=== PATIENT | male | born 1980 | race Caucasian/White ===

== ENCOUNTER 2016-11-02 15:29 | Emergency (ER) | END 2016-11-02 17:28 | disposition left against medical advice (07) | LOC: UCCORT 15:29 | DX: R21 Rash and other nonspecific skin eruption (principal); Z53.21 Procedure and treatment not carried out due to patient leaving prior to being seen by health care provider ==

== ENCOUNTER 2018-12-10 14:17 | Emergency (ER) | payer OTHER ==
[2018-12-10] MEDS ORDERED: Ketorolac INJ* 60 MG/2 ML VIAL IM ONE (16:09)
--- NOTE | 2018-12-10 16:31 | ED ---
Throat Pain/Nasal Congestion - HPI Summary HPI Summary: Patient is a 38-year-old male who presents to the ED with left bottom tooth pain over #21. He states he chipped his tooth a long time ago and the area keeps chipping with hard food. Last episode was last evening on a carrot. He is endorsing severe pain to the area which radiates up into the upper jaw and into the ear. He is also endorsing some swelling. Denies fevers, sweats, chills. He denies any erythema or warmth to the cheek. He states he is otherwise feeling at his baseline. Pain is currently rated an 8/10, constant and aching. - History of Current Complaint Chief Complaint: EDDentalPain Time Seen by Provider: 12/10/18 15:02 Hx Obtained From: Patient Onset/Duration: Sudden Onset Severity: Moderate Associated Signs And Symptoms: Positive: Negative - Epiglottits Risk Factors Epiglottis Risk Factors: Negative PMH/Surg Hx/FS Hx/Imm Hx Previously Healthy: Yes - Immunization History Hx Pertussis Vaccination: No Immunizations Up to Date: Yes Infectious Disease History: No Infectious Disease History: Denies: Traveled Outside the [place] in Last 30 Days - Social History Occupation: Employed Full-time Lives: With Family Alcohol Use: None Hx Substance Use: No Substance Use Type: Reports: None Hx Tobacco Use: Yes Smoking Status (MU): Former Smoker Review of Systems Constitutional: Negative Negative: Fever, Chills, Fatigue, Skin Diaphoresis Positive: Dental Pain. Negative: Sore Throat Negative: Palpitations, Chest Pain Negative: Abdominal Pain, Vomiting, Diarrhea Genitourinary: Negative Positive: no symptoms reported, see HPI Negative: Arthralgia, Myalgia Skin: Negative All Other Systems Reviewed And Are Negative: Yes Physical Exam Triage Information Reviewed: Yes Vital Signs On Initial Exam: Initial Vitals Temp Pulse Resp BP Pulse Ox 97.7 F 91 16 133/105 99 12/10/18 14:25 12/10/18 14:25 12/10/18 14:25 12/10/18 14:25 12/10/18 14:25 Vital Signs Reviewed: Yes Appearance: Positive: Well-Appearing, Well-Nourished Skin: Positive: Warm, Skin Color Reflects Adequate Perfusion Head/Face: Positive: Normal Head/Face Inspection Eyes: Positive: EOMI, SEAN, Conjunctiva Clear Dental: Positive: Percussion Tenderness @ - left lower, Gross Decay/Caries @ - throughout, Dental Fracture @ - L lower to #21. Negative: Cervical Lymphadenopathy, Bleeding, Oropharynx, Foreign body Respiratory/Lung Sounds: Positive: Clear to Auscultation, Breath Sounds Present Cardiovascular: Positive: RRR, Pulses are Symmetrical in both Upper and Lower Extremities Musculoskeletal: Positive: Pain @ - left lower jaw pain Neurological: Positive: Speech Normal Psychiatric: Positive: Affect/Mood Appropriate Diagnostics - Vital Signs Vital Signs Temp Pulse Resp BP Pulse Ox 12/10/18 14:25 97.7 F 91 16 133/105 99 - Laboratory Lab Statement: Any lab studies that have been ordered have been reviewed, and results considered in the medical decision making process. EENT Course/Dx - Course Course Of Treatment: Patient was able to call his dentist, however has been unable to see the dentist until next week. On physical examination, there is a broken tooth over #21. He is also having some swelling to the area. No erythema or warmth. No fevers, sweats, chills. Vital signs are stable. Dentist was requesting he be placed on antibiotics as he plans to pull this tooth. He will be given amoxicillin as well as Toradol for pain relief. He is given Toradol 60 mg IM in the ED. Patient will be discharged with the diagnosis of broken tooth and dental infection. - Diagnoses Provider Diagnoses: Fractured tooth Discharge - Sign-Out/Discharge Documenting (check all that apply): Patient Departure Patient Received Moderate/Deep Sedation with Procedure: No - Discharge Plan Condition: Stable Disposition: HOME Prescriptions: Amoxicillin PO (*) [Amoxicillin 500 MG CAP*] 500 mg PO TID #21 cap Ketorolac TAB * [Toradol TAB *] 10 mg PO Q6H #16 tab Patient Education Materials: Toothache (ED) Referrals: No Primary Care Phys,NOPCP [Primary Care Provider] - Additional Instructions: Toradol up to four times daily for pain amoxicillin three times daily x 7 days - Billing Disposition and Condition Condition: STABLE Disposition: Home
[2018-12-10 17:10] VITALS: BP 131/69
== END 2018-12-10 17:09 | disposition home or self-care (01) ==
LOC: ED 14:17
DX: S02.5XXA Fracture of tooth (traumatic), initial encounter for closed fracture (principal); K02.9 Dental caries, unspecified; X58.XXXA Exposure to other specified factors, initial encounter; Y92.9 Unspecified place or not applicable; Z87.891 Personal history of nicotine dependence
CPT/HCPCS: 96372; 99282; J1885